=== PATIENT | female | born 1975 | race Caucasian/White ===

== ENCOUNTER 2018-08-12 19:59 | Inpatient (IN) ==
[2018-08-12] MEDS ORDERED: NS 1,000 ML IV ONE ×2 (20:47→20:49)
[2018-08-12] MEDS ORDERED: MORPHINE IV ONE ×2 (20:48→22:01)
[2018-08-12] MEDS ORDERED: ZOFRAN IV ONE (20:49)
[2018-08-12 20:53] LABS: BASO# 0.03 X1000 (0.0-0.2); BASO% 0.4 % (0.0-0.8); EOS# 0.14 X1000 (0.0-0.7); EOS% 1.9 % (0.0-10.0); HEMATOCRIT 40.2 % (37.0-47.0); HEMOGLOBIN 13.5 g/dL (12.0-16.0); IMM GRAN# 0.01 X1000 (0.0-0.04); IMM GRAN% 0.1 % (0.0-0.5); LYMPH% 30.2 % (20.5-51.1); MCH 30.8 PG (27-31); MCHC 33.6 g/dL (33-37); MCV 91.8 FL (81-99); MONO# 0.66 X1000 (0.11-0.59); MONO% 9.1 % (1.7-9.3); MPV 10.7 FL (7.4-10.4); NEUT# 4.24 X1000 (1.4-6.5); NEUT% 58.3 % (42.2-75.2); PLT 273 X1000 (130-400); RBC 4.38 XMIL (4.2-5.4); RDW 12.7 % (11.5-14.5); WBC 7.28 X1000 (4.8-10.8)
--- NOTE | 2018-08-12 20:53 | PROVIDER DOCUMENTATION ---
HPI-Abdominal Pain/GI Problem - General Chief Complaint: Abdominal Pain Stated Complaint: ABD PAIN Time Seen by Provider: 08/12/18 20:47 Source: patient, family Allergies/Adverse Reactions: Patient Allergies Allergy/AdvReac Type Severity Reaction Status Date / Time No Known Allergies Allergy Verified 03/09/12 11:20 Home Medications: Home Medication List Medication Instructions Recorded Confirmed Last Taken Type Hydrocodone/Acetaminophen [Lortab 1 each PO DIRECTED #15 tablet 03/09/1211/2603/11/12 Rx 5-500 Tablet] Naproxen Sodium [Aleve] 220 mg PO PRN PRN 03/13/12 08/13/18 03/13/12 09:00 History Escitalopram [Lexapro] 10 mg 08/13/18 08/12/18 22:30 History Lisinopril/Hydrochlorothiazide 20 mg DAILY 08/13/18 08/13/18 08/11/18 22:30 History [Lisinopril-Hctz 20-25 mg Tab] Ondansetron [Zofran] 4 mg PO Q6H PRN PRN 08/13/18 08/13/18 Unknown History - History of Present Illness-ABD Abdominal Pain Onset Location: reports: RLQ, LLQ Pain Radiation: reports: no radiation Quality of Pain: reports: sharp, stabbing Severity in ED: reports: severe Onset/Duration: reports: 4-6 hours ago Timing: reports: still present Exposure to sick contacts?: No Modifying Factors: improves with: nothing Associated Symptoms: reports: diaphoresis, dizziness, loss of appetite. denies : chest pain, constipation, diarrhea Dark Stools Present?: reports: none noticed Rectal Bleeding: reports: none Bruising or Bleeding Gums?: No Similar Symptoms Previously?: Yes (When she had ovarian torsion on the right) Recently seen or treated by another doctor?: No Review of Systems - Adult - REVIEW OF SYSTEMS - ADULT Constitutional: reports: no symptoms reported Eyes: reports: no symptoms reported Ears, Nose, Mouth & Throat: reports: no symptoms reported Cardiovascular: reports: no symptoms reported Respiratory: reports: no symptoms reported Gastrointestinal: reports: see HPI Genitourinary: reports: see HPI. denies: dysuria, discharge, frequency, urinary retention Musculoskeletal: reports: no symptoms reported Integumentary: reports: no symptoms reported Neurological: reports: no symptoms reported Past History - Adult - PAST MEDICAL HISTORY-ADULT Review of Records: reports: Old Records Reviewed, Nursing Assessment Review, Medications Reviewed Physical Exam-General - PHYSICAL EXAM-ADULT Initial Vital Signs Reviewed: Yes - CONSTITUTIONAL General Appearance: alert, severe distress - EYES Eyes: PERRL/EOMI, pink conjunctivae - HEAD, EARS, NOSE, MOUTH & THROAT HENMT: normocephalic/atraumatic, moist mucous membranes, normal ENT inspection - NECK Neck: supple, normal inspection - RESPIRATORY Respiratory: chest non-tender, lungs clear, normal breath sounds - CARDIOVASCULAR Cardiovascular: normal peripheral pulses, regular rate, rhythm, no edema - GASTROINTESTINAL (ABDOMEN) Abdominal Exam: normal bowel sounds, guarding, rigid, tenderness. negative: McBurney's point tenderness, Ng's sign, obturator sign - LYMPHATIC Lymphatic: no adenopathy - MUSCULOSKELETAL Back Exam: normal inspection, no CVA tenderness, no vertebral tenderness Extremity: normal range of motion, non-tender - SKIN Integumentary: normal color, normal turgor, warm/dry - NEUROLOGIC Neurologic: grossly normal, no motor/sensory deficits - PSYCHIATRIC Psych/Mental Status: normal mood/affect, normal thought content, normal thought process, oriented x 3 Progress - PLAN OF CARE/RESULTS Progress/Plan/Lab Results: Vital Signs - 8 hr 08/12/18 20:28 Temperature 98.2 F Pulse Rate 71 Respiratory Rate 20 Blood Pressure 142/080 O2 Sat by Pulse Oximetry 100 Orders Category Date Time Status Saline Loc DIRECTED Care 08/12/18 20:46 Active NPO Diet 08/12/18 20:[address] ABD/PELVIS W/IV CONT ONLY [CT] Stat Exams 08/12/18 20:47 Ordered AMYLASE [CHEM] Stat Lab 08/12/18 20:35 Received CBC WITH ELECTRONIC DIFF [HEME] Stat Lab 08/12/18 20:35 Received COMPREHENSIVE METABOLIC PANEL [CHEM] Stat Lab 08/12/18 20:35 Received LIPASE [CHEM] Stat Lab 08/12/18 20:[address] W/POSS RFLX CULT [URINALYSIS] Stat Lab 08/12/18 20:46 Uncollected 0.9% Sodium Chloride Inj [Ns] 1,000 ml Med 08/12/18 20:49 Active IV 500 mls/hr Morphine Med 08/12/18 20:48 Discontinued 6 mg IV NOW ONE Ondansetron [Zofran] Med 08/12/18 20:49 Discontinued 4 mg IV NOW ONE Result Diagrams: 08/12/18 20:35 08/12/18 20:35 - CONSULTS/PCP/HOSPITALIST Notification #1 *Consult/PCP/Hospitalist*: Dr Lizarraga Time Discussed: 23:50 Consult Disposition: Admit Departure - Departure Date of Disposition Decision: 08/12/18 Time of Disposition Decision: 23:55 DIAGNOSIS: Pelvic pain Disposition: ADMITTED INPATIENT 09 Certified Medical Emergency: Emergent Condition: Stable - Critical Care Note This patient required my direct & personal management of CC.: No Attestation - Physician/ DIMITRI Attestation The physician spent face to face time with patient:: Yes Advanced Practice Provider documentation review:: Supervising physician onsite and consulted in the evaluation and care of this patient. The physician did have a face to face encounter with the patient.
[2018-08-12 21:04] LABS: AGAP 13; ALBUMIN 4.1 g/dL (3.5-5.0); ALKALINE PHOSPHATASE 129 U/L (32-104); AMYLASE 86 U/L (20-200); BUN 12 mg/dL (8-22); CALCIUM 9.5 mg/dL (8.8-10.2); CHLORIDE 104 mmol/L (98-107); COSMO 277; ESTIMATED GFR > 60; GLUCOSE 100 mg/dL (70-104); GOT 43 U/L (10-30); GPT 47 U/L (10-36); LIPASE 46 U/L (13-60); POTASSIUM 3.6 mmol/L (3.5-5.1); SODIUM 139 mmol/L (136-145); TCO2 22 mmol/L (25-35); TOTAL PROTEIN 7.6 g/dL (6.3-8.3)
[2018-08-12 21:10] LABS: BILIRUBIN URINE NEGATIVE (NEGATIVE); BLOOD URINE NEGATIVE (NEGATIVE); CLARITY CLEAR (CLEAR); COLOR YELLOW; GLUCOSE URINE NEGATIVE (NEGATIVE); KETONE URINE NEGATIVE (NEGATIVE); LEUKOCYTES URINE NEGATIVE (NEGATIVE); NITRITE URINE NEGATIVE (NEGATIVE); PROTEIN URINE NEGATIVE (NEGATIVE); SP GRAVITY URINE 1.005; UROBILINOGEN URINE NORMAL
[2018-08-12 21:11] LABS: URINE SOURCE CATH
[2018-08-12 21:17] LABS: URINE BACTERIA NEGATIVE /HFP; URINE CAST NONE SEEN /LPF; URINE EPITHELIAL CELLS <10 /HPF (<10); URINE RBC <10 /HPF (<10); URINE WBC <10 /HPF (<10); URINE YEAST NONE SEEN /HPF
[2018-08-12 21:18] LABS: URINE CRYSTAL NONE SEEN /HPF
--- NOTE | 2018-08-12 21:57 | Diag Imaging Result Doc PS360 ---
EXAM: CT ABD/PELVIS W/IV CONT ONLY - 08/12/2018 HISTORY: sudden, severe pelvic pain. s/p oophorectomy for torsion TECHNIQUE: CT abdomen/pelvis with intravenous contrast. No oral contrast administered per request of the referring provider. COMPARISON: None. FINDINGS: The visualized lung bases are clear except for a calcified granuloma from old granulomatous disease at the left base. There are no substantial abnormalities of the liver, spleen, adrenal glands, or pancreas identified. There are no calcified gallstones or pericholecystic inflammation identified. The bilateral kidneys enhance homogeneously. There is no hydronephrosis. There are nonspecific small retroperitoneal and mesenteric lymph nodes. There is no evidence of bowel obstruction. The appendix is unremarkable. There is no substantial bowel wall thickening identified. There is no free air or abscess identified. Images of pelvis show an intrauterine device in uterus. There is a history of left oophorectomy. Some enhancing hyperdense fullness at the left pelvis in the vicinity of the broad ligament. This measures approximately 3.6 x 1.1 cm. There is some haziness of nearby fat. This may represent unusual inflammation, hematoma, or possibly postsurgical scarring. There apparently a couple of right ovarian cysts, the larger of which measures approximately 1.8 cm. The presence or absence of ovarian torsion is not evaluated by this exam. There is a small amount of free fluid in pelvis. IMPRESSION: Hyperdense fullness at left pelvis in the vicinity of the broad ligament. This may relate to unusual inflammatory process, hemorrhage, or possibly postsurgical scarring. The left ovary by history is surgically absent. Apparent small right ovarian cysts measuring up to 1.8 cm. The presence or absence of ovarian torsion is not evaluated by this exam. Small amount of free fluid in pelvis. This exam was performed using automated exposure control, adjustment of mA or kV according to patient size, and/or use of iterative reconstruction technique. Electronically signed by Abilio Suazo 08/12/2018 9:55 PM
--- NOTE | 2018-08-13 00:26 | HISTORY AND PHYSICAL ---
COMPLAINTS: Left side pain. HISTORY OF PRESENT ILLNESS: The patient is a 43-year-old white female, G 1, P 1 who presents with a day long history of abdominal pain on the left side. She went to work but worked through pain and then after her workday when she came home her pain became more severe and then once she came to the emergency room she had a syncopal episode in the waiting room. She has a history of left ovarian torsion and this was removed by Dr. Lopez 6 years ago. Has not had any problems since then. She does have an IUD in place last checked 5 months ago. PAST MEDICAL HISTORY: Significant for high blood pressure. She recently started treatment 3 years ago. She also is on medication for anxiety. PAST SURGICAL HISTORY: Left ovarian torsion with laparoscopy for left oophorectomy. PAST OB HISTORY: , spontaneous vaginal delivery x1. RESIDENTIAL LEASING MANAGER HISTORY: The patient's menstrual history is none in the last 4 years since she has had an IUD in place. This was her 2nd IUD. FAMILY HISTORY: Significant for myocardial infarction as well as high blood pressure. MEDICATIONS: Lexapro and unknown blood pressure medicine. ALLERGIES: No known drug allergies. PHYSICAL EXAMINATION: VITAL SIGNS: Height 5 feet 6, weight 170 pounds. Temperature 98.2 degrees, pulse of 71, blood pressure 142/80, respirations 20. HEENT: Pupils equal, round, reactive to light accommodation. Extraocular movements intact. Oropharynx clear. NECK: Supple. No thyromegaly. LUNGS: Clear to auscultation. HEART: Regular rate and rhythm. ABDOMEN: Lower abdominal pain to palpation mainly on left side and toward the middle but the right side was nontender. EXTREMITIES: Had no clubbing, cyanosis, or edema noted. NEUROLOGIC: Cranial nerves 2-12 grossly intact. Motor 5/5 bilaterally. LABORATORY: CBC white count was 7.2, hemoglobin was 13.5, hematocrit 40.2, platelet count 273,000. Her chemistry was significant for creatinine of 1.0. Urinalysis was within normal limits. On CT scan, on the left side there was a 3.6 x 1.1 cm mass near the broad ligament or hyperdense area could be scarring or inflammatory process. ASSESSMENT AND PLAN: A 43-year-old white female, G 1, P 1 who has had onset of abdominal pain today. The patient will be admitted for further evaluation and for treatment of pain through IV medication if needed. Discussed with her about the possibility that laparoscopy may be needed to further evaluate. Will plan on ultrasound study in the morning to help with imaging RESIDENTIAL LEASING MANAGER structures. cc: Clemente Lizarraga III, MD
[2018-08-13] MEDS: MORPHINE IV PRN ×3 (01:26→19:04)
[2018-08-13] MEDS: TYLENOL PO PRN (11:55)
[2018-08-13] MEDS: ZOFRAN IV PRN (12:44)
[2018-08-13] MEDS ORDERED: FIORICET PO PRN (12:46)
--- NOTE | 2018-08-13 15:59 | Diag Imaging Result Doc PS360 ---
EXAM: US PELVIC NON-OB COMPLETE HISTORY: Left pelvic pain TECHNIQUE: Transvesical and transvaginal pelvic ultrasound. Transvaginal imaging needed to better evaluate adnexa. COMPARISON: None. FINDINGS: The uterus measures 8.5 x 4.9 x 4.4 centimeters. No uterine mass. No endometrial thickening. The two gordon combined measure 4 mm. The left ovary is not present. There is a moderate amount of free fluid in the pelvis. There is a 1.9 cm complex right ovarian cyst. IMPRESSION: Free fluid complex right ovarian cyst. Electronically signed by Adam Walker 08/13/2018 3:57 PM
[2018-08-13] MEDS: SUDAFED 12-HOUR PO SCH (21:53)
[2018-08-13] MEDS: LEXAPRO PO SCH (21:53)
[2018-08-14] MEDS ORDERED: NON-FORMULARY MED (Lisinopril/Hydrochlorothiazide [Lisinopril-Hctz 20-25 Mg Tab] 20 MG) PO SCH (09:00)
[2018-08-14] MEDS: LEXAPRO PO SCH ×2 (09:01→21:32)
[2018-08-14] MEDS: HYDROCHLOROTHIAZIDE PO SCH (09:01)
[2018-08-14] MEDS: PRINIVIL PO SCH (09:01)
[2018-08-14] MEDS: SUDAFED 12-HOUR PO SCH ×2 (09:02→21:32)
[2018-08-14] MEDS ORDERED: COLACE ONE (09:45)
[2018-08-14] MEDS: MORPHINE IV PRN ×3 (09:46→21:33)
[2018-08-14] MEDS: ZOFRAN IV PRN (09:47)
[2018-08-14] MEDS: COLACE PO SCH ×2 (10:50→21:32)
[2018-08-14 11:23] LABS: BASO# 0.01 X1000 (0.0-0.2); BASO% 0.2 % (0.0-0.8); EOS# 0.09 X1000 (0.0-0.7); EOS% 1.5 % (0.0-10.0); HEMATOCRIT 35.9 % (37.0-47.0); HEMOGLOBIN 11.9 g/dL (12.0-16.0); IMM GRAN# 0.01 X1000 (0.0-0.04); IMM GRAN% 0.2 % (0.0-0.5); LYMPH# 1.46 X1000 (1.2-3.4); LYMPH% 24.7 % (20.5-51.1); MCH 30.9 PG (27-31); MCHC 33.1 g/dL (33-37); MCV 93.2 FL (81-99); MONO# 0.75 X1000 (0.11-0.59); MONO% 12.7 % (1.7-9.3); MPV 9.9 FL (7.4-10.4); NEUT% 60.7 % (42.2-75.2); PLT 218 X1000 (130-400); RBC 3.85 XMIL (4.2-5.4); RDW 12.6 % (11.5-14.5); WBC 5.92 X1000 (4.8-10.8)
--- NOTE | 2018-08-14 19:55 | CONSULTATION ---
DATE OF CONSULTATION: 08/14/2018 CHIEF COMPLAINT: Left lower quadrant pain and syncope. HISTORY OF PRESENT ILLNESS: This is a 43-year-old female who presented to the hospital complaining of left lower quadrant pain. She describes this as a stabbing and sharp pain that had a sudden onset. She states any movement or palpation increases the pain. Lying still does decrease it somewhat. Pain has not resolved. She did have some nausea when this started, and when the pain was really bad, she stated that she had some diaphoresis. CT of the abdomen and pelvis was performed, which revealed hyperdense fullness at the left pelvis by the broad ligament and a small right ovarian cyst. Pelvic ultrasound revealed free fluid with a complex right ovarian cyst. The patient had a syncopal episode in the lobby of the emergency room. She stated that she had no warning. On questioning the patient she does remember becoming nauseated, feeling warm all over and then the next thing she knew she was lying on the floor and had been told she passed out. There was no loss of bowel or bladder control. She denies any prior syncopal episodes. PAST MEDICAL HISTORY: Hypertension, anxiety. PAST SURGICAL HISTORY: Left ovarian torsion with subsequent left oophorectomy. SOCIAL HISTORY: She denies alcohol, tobacco, or illicit drug use. ALLERGIES: No known drug allergies. HOME MEDICATIONS: 1. Lisinopril/hydrochlorothiazide 20/25 daily. 2. Lexapro 10 mg p.o. daily. REVIEW OF SYSTEMS: Discussed with patient with pertinent positives stated in the HPI. She denied any dizziness, any chest pain or palpitations, shortness of breath, cough, fever, chills, PND, orthopnea, fever, nausea, vomiting, diarrhea, constipation, black or bloody vomitus or stools, any shortness of breath, cough. PHYSICAL EXAMINATION: General: This is a 43-year-old female who is lying in the bed in no distress. Vital Signs: Blood pressure is 101/66 with a heart rate of 82, respirations are 16, temperature is 98.3 degrees oral with room air saturations 97%. Eyes: Pupils are equal, round, react to light. EOMs are intact. Sclerae anicteric. HEENT: Head is normocephalic, atraumatic. Mucous membranes are moist. Neck: Supple with trachea midline. Cardiovascular: Regular rate and rhythm. S1 and S2 appreciated. She has no murmur. She has no lower extremity edema. Calves are nontender bilateral to palpation and peripheral pulses are palpable x4 extremities. Pulmonary: Breath sounds are clear with no increased work of breathing noted. Chest rises and falls symmetrically with respiration. Gastrointestinal: Abdomen is soft, nondistended. She is tender to palpation suprapubic to the left lower quadrant. Bowel sounds are present. Neurologic: She is alert and oriented x3. Skin: Warm and dry. LABORATORY DATA: WBC is 5.9, hemoglobin is 11.9, hematocrit 35.9, and platelets of 218,000. ASSESSMENT AND PLAN: 1. Syncope. There could have been a vagal component; however, we will check an echocardiogram. Trend orthostatic vital signs. 2. Abdominal pain. WIll repeat CT abdomen and pelvis with IV and oral contrast. Further treatments pending hospital course. Thank you for this consult and allowing us to participate in this patients care. Dictated by SANDRA Desai for Sandro Llanos MD This chart was documented by, SANDRA Desai and accurately reflects the services performed, treatment plan and medical decisions as attested by the providers signature Sandro Llanos MD. cc: SANDRA Desai MD George V. Pegram III, MD MTDD
--- NOTE | 2018-08-15 00:38 | CONSULTATION ---
DATE OF CONSULTATION: 08/14/2018 ADDENDUM: Patient seen and examined by myself. Please see full note and my dictation. Patient complains of left lower quadrant pain to light palpation. This certainly appears more musculoskeletal at this point, although she is requiring pain medication. We may decide to repeat the CT scan in the a.m. if symptoms have not improved. cc: MD Clemente Garcia III, MD
[2018-08-15] MEDS: MORPHINE IV PRN ×2 (08:05→17:37)
[2018-08-15] MEDS: HYDROCHLOROTHIAZIDE PO SCH (08:12)
[2018-08-15] MEDS: PRINIVIL PO SCH (08:12)
[2018-08-15] MEDS: COLACE PO SCH ×2 (08:12→20:24)
[2018-08-15] MEDS: SUDAFED 12-HOUR PO SCH ×2 (08:12→20:24)
[2018-08-15] MEDS: LEXAPRO PO SCH ×2 (08:12→20:25)
--- NOTE | 2018-08-15 13:51 | ECHO REPORT ---
ORDER DATE: 08/14/2018 MEASUREMENTS: Septal thickness 1.0, left ventricular internal diameter end diastole 4.0, posterior wall thickness 1.0, left ventricular internal diameter end systole 2.25, left atrium 2.4, aortic root 2.6. SUMMARY: 1. Adequate quality study. 2. Aortic valve was without evidence of structural abnormality and opens adequately on 2- dimensional images. Peak gradient across the aortic valve is 18 mmHg in the setting of hyperdynamic left ventricular function. Mitral, tricuspid and pulmonic valves are without evidence of structural abnormality with trace mitral regurgitation and trace tricuspid regurgitation. The estimated systolic PA pressure by Doppler is 25 mmHg. The aortic root is normal size. 3. Normal left ventricular dimensions demonstrated. The left ventricle appears hyperdynamic with an estimated left ventricular ejection fraction at least 70%. No regional wall abnormalities are evident. Left atrium, right atrium, right ventricle are normal in size with grossly preserved right ventricular systolic function. 4. No pericardial effusion. 5. Appearance of the inferior vena cava suggests normal central venous pressure. CONCLUSIONS: 1. No significant valvular abnormality. 2. Hyperdynamic left ventricle with estimated left ventricular ejection fraction greater than 70%. cc: MD Genia Michel CRNP Gregory S. Cheatham, MD
--- NOTE | 2018-08-15 17:16 | Diag Imaging Result Doc PS360 ---
CT ABD/PELVIS W/PO AND IV CON - 08/15/2018 INDICATION: LLq pain COMPARISON: 08/12/2018 FINDINGS: There is some mild but increasing pelvic free fluid. There is also some inflammatory edema at the left adnexa or sigmoid colon. No bowel obstruction or free air. There are no other abnormalities. There is an IUD in the pelvis. Urinary bladder and rectum are normal. IMPRESSION: Slight but increasing pelvic free fluid and inflammation at the left adnexal region. The differential diagnosis includes sigmoid diverticulitis, hemorrhagic ovarian cyst, or pelvic inflammatory disease. Correlate clinically. This exam was performed using automated exposure control, adjustment of mA or kV according to patient size, and/or use of iterative reconstruction technique Electronically signed by Hudson Elias 08/15/2018 5:14 PM
[2018-08-15] MEDS: FLAGYL 500 MG/NS 500 MG/100 ML IVPB IV SCH (20:24)
[2018-08-15] MEDS: LEVAQUIN 500 MG/D5W 500 MG/100 ML IVPB IV SCH (20:24)
--- NOTE | 2018-08-16 00:29 | PROGRESS NOTE ---
DATE: 08/15/2018 SUBJECTIVE: Patient is still having some pain in her left lower quadrant. Denies any fevers or chills. Notes that when she has a bowel movement, symptoms seem to be a little bit better and when she urinates symptoms seem to be worse. PHYSICAL EXAMINATION: Vital Signs: Temperature 98 degrees, pulse 92, respiratory 18, BP 105/61. General: Patient is awake, alert. She is currently in no distress. HEENT: Normocephalic. Neck: Supple. Cardiovascular: Regular rate. Chest: Clear, nonlabored. Abdomen: Soft. She does have tenderness in the left lower quadrant. It is difficult to veronica how severe as she starts to voluntarily guard before she is touched. She has no involuntary guarding. Positive bowel sounds. Extremities: Moves all extremities. No edema. Neurologic: No focal changes. ASSESSMENT: Left lower quadrant abdominal pain, certainly may be related to diverticulitis. Repeat CT demonstrates that she may have some colitis. We will place her on Levaquin, Flagyl and we will follow. cc: Sandro Llanos MD
[2018-08-16] MEDS: ZOFRAN IV PRN ×2 (03:57→10:14)
[2018-08-16] MEDS: FLAGYL 500 MG/NS 500 MG/100 ML IVPB IV SCH ×4 (06:21→23:04)
--- NOTE | 2018-08-16 08:51 | OB/GYN PROGRESS NOTE ---
Progress Note JET ENGINE MECHANIC - . Patient Problems: Current Active Problems Problem Status Onset Pelvic pain Acute Diverticulitis Acute History of left oophorectomy Acute History of colitis Acute JET ENGINE MECHANIC Progress Note: Vital Signs - 24 hr 08/15/18 15:00 08/15/18 19:40 08/15/18 19:41 Temperature 98.0 F 97.7 F Pulse Rate 89 104 H Pulse Rate [Sitting] 83 Pulse Rate [Standing] 103 H Pulse Rate [Supine] 100 H Respiratory Rate 16 16 Blood Pressure 98/63 94/64 Blood Pressure [Sitting] 106/62 Blood Pressure [Standing] 91/60 Blood Pressure [Supine] 94/64 O2 Sat by Pulse Oximetry 100 99 08/16/18 03:00 08/16/18 07:38 08/16/18 08:05 Temperature 97.9 F 98.3 F Pulse Rate 80 Pulse Rate [Sitting] 91 H Pulse Rate [Standing] 86 Pulse Rate [Supine] 110 H Respiratory Rate 18 Blood Pressure 112/62 Blood Pressure [Sitting] 114/60 Blood Pressure [Standing] 104/64 Blood Pressure [Supine] 108/84 O2 Sat by Pulse Oximetry 99 100 Bedside Urine ED: Urine Bedside Start: 08/12/18 21:04 Freq: ORDERED Status: Complete Protocol: Activity Type Activity Date Activity User E-Sign Co-Sign Detail Recorded Client Recorded Date Recorded By Document 08/12/18 21:11 [id number] 08/12/18 21:11 [id number] Edit Status 08/13/18 00:42 [id number] Active=>Complete [id number] 08/13/18 00:42 [id number] 08/12/18 21:11 Point of Care [Bedside Point of Care] -Lot # [id number] - Results Negative -Control Line Visible? Yes INPATIENT GYNECOLOGY PROGRESS NOTE HPI: Mrs. Mustapha Michele is a 43yo P1001 with h/o left oophorectomy for ovarian torsion and colitis who is HD # 5 admitted for acute left-sided pelvic pain, now being treated for suspected diverticulitis S: Patient still c/o persistent LLQ pain, that is currently a 5/10 in severity. Last dose of pain medication was last night. States she has not had a bowel movement since Saturday night. She is unsure if she has LLQ pain from constipation or her current inflammatory process but is unsure if she needs to have a bowel movement. Endorses not passing much gas but does not feel as distended as yesterday. Attempted to eat some Chicken [employer] from [employer] yesterday afternoon but became nauseated. Had a few bites of [employer] last night. Denies fever, chest pain, shortness of breath. Of note, the patient states her sxs are very similar to when she had ovarian torsion (nausea, persistent pain), and she was first diagnosed with colitis several days prior to the diagnosis of ovarian torsion after her sx did not improve. She is concerned that this is what is occurring this time as well. O: Vitals signs as documented above. General: Lying in bed, no acute distress, alert, cooperative Lungs: CTAB anteriorly and posteriorly CV: RRR, normal S1 and S2, no MRG Abdomen: Diffusely tender to light palpation across the lower abdomen, however, patient reports more tenderness in the LLQ, no masses noted Extremities: No calf tenderness or edema bilaterally Neurologic: Grossly intact No new labs. Imaging: CT ABD/PELVIS W/PO AND IV CON - 08/15/2018 INDICATION: LLq pain COMPARISON: 08/12/2018 FINDINGS: There is some mild but increasing pelvic free fluid. There is also some inflammatory edema at the left adnexa or sigmoid colon. No bowel obstruction or free air. There are no other abnormalities. There is an IUD in the pelvis. Urinary bladder and rectum are normal. IMPRESSION: Slight but increasing pelvic free fluid and inflammation at the left adnexal region. The differential diagnosis includes sigmoid diverticulitis, hemorrhagic ovarian cyst, or pelvic inflammatory disease. 08/13/2018 EXAM: US PELVIC NON-OB COMPLETE HISTORY: Left pelvic pain TECHNIQUE: Transvesical and transvaginal pelvic ultrasound. Transvaginal imaging needed to better evaluate adnexa. COMPARISON: None. FINDINGS: The uterus measures 8.5 x 4.9 x 4.4 centimeters. No uterine mass. No endometrial thickening. The two gordon combined measure 4 mm. The left ovary is not present. There is a moderate amount of free fluid in the pelvis. There is a 1.9 cm complex right ovarian cyst. IMPRESSION: Free fluid complex right ovarian cyst. Assessment: 43yo P1001 with h/o left oophorectomy and colitis who is HD # 5 with acute diverticulitis and constipation Plan: 1. Acute diverticulitis - Hospitalist team following, appreciate recommendations and orders. Continue Flagyl and Levaquin (Day 2). Discussed dx with patient and unlikelihood of right ovarian torsion presenting with her current sxs. Also discussed detriment of doing a procedure like a right oophorectomy or hysterectomy without clear diagnosis of right ovarian torsion as patient inquired if this would be useful at this time to alleviate her sxs. 2. Constipation - Continue Colace - Intiate Miralax BID - Encouraged ambulation TID - Patient on full liquid diet per hospitalist orders but will add fruit tray once she initiates regular diet again.
[2018-08-16] MEDS: SUDAFED 12-HOUR PO SCH ×2 (10:14→20:57)
[2018-08-16] MEDS: MIRALAX PO SCH ×2 (10:14→20:57)
[2018-08-16] MEDS: LEXAPRO PO SCH ×2 (10:14→20:57)
[2018-08-16] MEDS: PRINIVIL PO SCH (10:14)
[2018-08-16] MEDS: COLACE PO SCH ×2 (10:15→20:57)
[2018-08-16] MEDS: HYDROCHLOROTHIAZIDE PO SCH (10:15)
[2018-08-16] MEDS: TYLENOL PO PRN (15:29)
[2018-08-16] MEDS: LEVAQUIN 500 MG/D5W 500 MG/100 ML IVPB IV SCH (20:00)
--- NOTE | 2018-08-16 20:52 | PROGRESS NOTE ---
DATE: 08/16/2018 SUBJECTIVE: Patient notes that her left lower quadrant pain seems to be improving. Denies any current nausea. Denies diarrhea. Denies any blood in her emesis or stool. PHYSICAL EXAMINATION: Vital Signs: Temperature 97.9, pulse 80, respiratory 18, BP 112/62. General: Patient is awake, alert. She appears much improved. Denies any chest pain, palpitations. HEENT: Normocephalic atraumatic. PERRL. Neck: Supple. No JVD. CARDIOVASCULAR: Regular rate. Chest: Clear. Abdomen: Soft. Appears less tender in the left in the left lower quadrant. ASSESSMENT: 1. Probable diverticulitis causing her left lower quadrant pain. 2. Nausea, improved. PLAN: We will continue Levaquin and Flagyl. If symptoms improve again, hopefully, she can discharge home tomorrow. cc: Sandro Llanos MD
[2018-08-17] MEDS: FLAGYL 500 MG/NS 500 MG/100 ML IVPB IV SCH ×2 (05:07→15:06)
--- NOTE | 2018-08-17 08:12 | OB/GYN PROGRESS NOTE ---
Progress Note SUPERVISOR TELEPHONE INFORMATION - . Patient Problems: Current Active Problems Problem Status Onset History of colitis Acute History of left oophorectomy Acute Diverticulitis Acute Pelvic pain Acute SUPERVISOR TELEPHONE INFORMATION Progress Note: Vital Signs - 24 hr 08/16/18 07:38 08/16/18 08:05 08/16/18 15:00 Temperature 98.3 F 98.6 F Pulse Rate 90 Pulse Rate [Sitting] 91 H Pulse Rate [Standing] 86 Pulse Rate [Supine] 110 H Respiratory Rate 16 Blood Pressure 109/75 Blood Pressure [Sitting] 114/60 Blood Pressure [Standing] 104/64 Blood Pressure [Supine] 108/84 O2 Sat by Pulse Oximetry 100 99 08/16/18 20:00 08/16/18 20:45 08/17/18 03:00 Temperature 97.9 F 97.9 F Pulse Rate 109 H 102 H Pulse Rate [Sitting] 120 H Pulse Rate [Standing] 131 H Pulse Rate [Supine] 108 H Respiratory Rate 18 18 Blood Pressure 115/82 Blood Pressure [Sitting] 97/63 Blood Pressure [Standing] 97/79 Blood Pressure [Supine] 101/70 O2 Sat by Pulse Oximetry 99 100 08/17/18 07:42 Temperature Pulse Rate Pulse Rate [Sitting] 112 H Pulse Rate [Standing] 64 Pulse Rate [Supine] 95 H Respiratory Rate Blood Pressure Blood Pressure [Sitting] 96/64 Blood Pressure [Standing] 100/52 Blood Pressure [Supine] 117/76 O2 Sat by Pulse Oximetry Bedside Urine ED: Urine Bedside Start: 08/12/18 21:04 Freq: ORDERED Status: Complete Protocol: Activity Type Activity Date Activity User E-Sign Co-Sign Detail Recorded Client Recorded Date Recorded By Document 08/12/18 21:11 [id number] 08/12/18 21:11 [id number] Edit Status 08/13/18 00:42 [id number] Active=>Complete [id number] 08/13/18 00:42 [id number] 08/12/18 21:11 Point of Care [Bedside Point of Care] -Lot # [id number] - Results Negative -Control Line Visible? Yes INPATIENT GYNECOLOGY PROGRESS NOTE HPI: Mrs. Mustapha Michele is a 43yo P1001 with h/o left oophorectomy for ovarian torsion and colitis who is HD # 6 admitted for acute left-sided pelvic pain, now being treated for probable diverticulitis S: Patient states her LLQ pain has improved over the last 24 hours. She still denies a bowel movement but she is passing more flatus. Reports some nausea but less than previously. Tolerated fruit last night. Denies fever, chest pain, shortness of breath, ZAMARRIPA. Desires to go home today. O: Vitals signs as documented above. Pending AM vitals. General: Lying in bed, no acute distress, alert, cooperative Lungs: CTAB anteriorly and posteriorly CV: RRR, normal S1 and S2, no MRG Abdomen: Diffusely tender to light palpation across the lower abdomen, however, patient reports more tenderness in the LLQ, no masses noted Extremities: No calf tenderness or edema bilaterally Neurologic: Grossly intact No new labs. No new imaging. Assessment: 43yo P1001 with h/o left oophorectomy and colitis who is HD # 6 with acute diverticulitis and constipation Plan: 1. Acute diverticulitis - Hospitalist team following, appreciate recommendations and orders. Continue Flagyl and Levaquin (Day 3). As patient is better clinically, anticipate discharge pending hospitalist recs with outpatient abx therapy. 2. Constipation - Continue Colace and Miralax BID - Encouraged ambulation TID
[2018-08-17] MEDS: LEXAPRO PO SCH (09:44)
[2018-08-17] MEDS: HYDROCHLOROTHIAZIDE PO SCH (09:44)
[2018-08-17] MEDS: COLACE PO SCH (09:44)
[2018-08-17] MEDS: SUDAFED 12-HOUR PO SCH (09:44)
[2018-08-17] MEDS: MIRALAX PO SCH (09:45)
[2018-08-17] MEDS: PRINIVIL PO SCH (09:45)
[2018-08-17 14:14] VITALS: BP 117/75
[2018-08-17] MEDS: ZOFRAN IV PRN (14:55)
--- NOTE | 2018-08-17 15:01 | DISCHARGE SUMMARY ---
ADMISSION DATE: 08/12/2018 DISCHARGE DATE: 08/17/2018 DISCHARGE DIAGNOSES: 1. Colitis, questionable diverticulitis, improved. 2. Nausea, vomiting, improved. 3. Left lower quadrant pain, improved. 4. A 3.6 x 1.1 cm hyperdense area, left lower quadrant, could be scarring versus inflammatory process. 5. Others. PLAN: The patient was admitted to the hospital with nausea and vomiting. She was noted to have left lower quadrant abdominal pain. She had a CT, which demonstrated a questionable mass versus inflammatory process. This was in the same area that she had a left ovarian torsion with laparoscopy and oophorectomy. Most likely, it is scarring. Her initial CT was not done with contrast, and the IV contrast the patient notes leaked out of the IV. She was admitted to the hospital, given clear liquids for a day or two. Symptoms did not resolve, and then we were consulted. We repeated the CT with oral and IV contrast, and it demonstrated colitis in the left lower quadrant. She was placed on Levaquin and Flagyl. Thankfully, her symptoms improved over the next two days. Her pain medication usage declined. She was able to tolerate eating. She notes that she is feeling better, and therefore she will be discharged home. DISPOSITION: The patient will be discharged home. She will follow up outpatient with primary care of her choice. Discussed with her that she should consider having a colonoscopy over the next 2 or 3 months to ensure that her symptoms have cleared. Otherwise, she will be discharged home with Holly 5, #20, as well as Levaquin and Flagyl. cc: Sandro Llanos MD
--- NOTE | 2018-08-17 16:54 | DISCHARGE SUMMARY ---
ADMISSION DATE: 08/12/2018 DISCHARGE DATE: 08/17/2018 PATIENT IDENTIFICATION: This patient is a 43-year-old P1, 0, 0, 1, 0. ATTENDING PHYSICIAN: Verónica Quiroga MD. ADMISSION DIAGNOSIS: Left-sided pelvic pain. DISCHARGE DIAGNOSIS: Acute diverticulitis. SECONDARY DIAGNOSES: History of left oophorectomy, history of colitis, history of high blood pressure, and history of anxiety. CONSULTATIONS: Hospitalist team, Dr. Llanos. BRIEF HOSPITAL COURSE: This is a 43-year-old, P1001 with h/o left ovarian torsion s/p left oophorectomy, who presented to the emergency room after a day long history of abdominal pain located on the left side. She presented to the ER where she was noted to have a syncopal episode in the waiting room. She was admitted after undergoing abdominal CT scan that showed hyperdense fullness in the left pelvis in the vicinity of the broad ligament for further workup, treatment with pain medications, and observation. The process was thought to be related to inflammatory process, hemorrhage, or possibly post surgical scarring. There were no significant findings on lab results or on pelvic ultrasound. When her pain persisted, the hospitalist team was consulted and recommended a repeat CT scan of the abdomen and pelvis. On that scan there was a slight increasing pelvic free fluid and inflammation noted in the left adnexal region. It was thought at that time that she was suffering from probable diverticulitis. Antibiotics of Levaquin and Flagyl were initiated. After the patient clinically improved, she was deemed a suitable patient for outpatient therapy treatment of her diverticulitis. During her time inpatient, she remained afebrile with no significant lab findings. She was discharged in stable condition on hospital day #6. There are no pending lab or test results. DISCHARGE DISPOSITION: DIET: Encouraged a high-fiber diet. Discussed increased fruit and vegetable intake. Also discussed supplementation with MiraLAX serving twice daily. DISCHARGE MEDICATIONS: The patient was discharged with Levaquin and metronidazole antibiotics. FOLLOWUP APPOINTMENTS: The patient was advised to make a followup appointment with her primary care physician. cc: MD Sandro Lema MD [facility]ITAL[facility]ilee
== END 2018-08-17 15:16 | disposition home or self-care (01) | DRG 392 ==
LOC: P.ED 19:59 → P.MEDSURG 23:51
PROVIDERS: ADMIT Family Medicine; ATTEND Obstetrics & Gynecology
CPT/HCPCS: 51701; 74177; 76856; 80053; 81001; 81025; 82150; 83690; 85025; 93306; 96361; 96374; 96375; 96376; 99285; A9270; J1956; J2270; J2405; J7030; P9612; Q9967; S0030